=== PATIENT | female | born 2005 | race Caucasian/White ===

== ENCOUNTER 2025-04-22 07:42 | Outpatient (CLI) | payer OTHER, SELFPAY ==
--- NOTE | 2025-04-22 08:00 | CRLHL7_ITS ---
For Patients: As a result of the Century Cures Act, medical imaging exams and procedure reports are released immediately into your electronic medical record. You may view this report before your referring provider. If you have questions, please contact your health care provider. INDICATION: Eustachian tube dysfunction. Nasal congestion. TECHNIQUE: High-resolution CT images were acquired through the paranasal sinuses without contrast. Multiplanar reconstructions. FINDINGS: Frontal: Frontal air cells are clear in the inferior frontal recess is patent. Ethmoid: Mild mucosal thickening in several anterior ethmoid air cells without air-fluid levels. Sphenoid: There is 1-2 mm mucosal thickening at the anterior wall of the left sphenoid air cell the an near the sphenoid ethmoidal recesses and the sphenoid air cells are otherwise clear. Maxillary: Mild focal mucosal thickening and sub cm retention cysts noted at the base of the bilateral maxillary sinuses no air-fluid levels. Mucosal thickening affects the ostiomeatal units which are mildly narrowed. Nasal fossa: Coastal thickening of the inferior and middle nasal terminates. Mild convex left anterior nasal septal curve. Posterior nasal fossa and nasopharynx are otherwise unremarkable. The mastoid air cells and middle ear cavities are clear as visualized. IMPRESSION: 1. Mucosal thickening involves the bilateral nasal turbinates. Mild convex left nasal septal curvature 2. Mild mucosal thickening of inferior maxillary sinuses and a few anterior ethmoid air cells. 3. Mild mucosal narrowing of the bilateral ostiomeatal units. 4. No air-fluid levels. Please note that all CT scans at this facility use dose modulation, iterative reconstruction, and/or weight-based dosing when appropriate to reduce radiation dose to as low as reasonably achievable. Dictated by Abundio Remy MD @ 04/24/2025 8:11:12 AM (Electronically Signed)
== END 2025-04-22 07:43 | disposition home or self-care (01) ==
LOC: CT 07:43
PROVIDERS: Visit Provider Otolaryngology
DX: R09.81 Nasal congestion (principal); J33.8 Other polyp of sinus; J32.0 Chronic maxillary sinusitis
CPT/HCPCS: 70486